=== PATIENT | female | born 1965 | race Hispanic/Latino ===

== ENCOUNTER 2019-03-26 14:14 | Emergency (ER) | payer BC ==
[~2019-03-26 14:14] MED LIST: HYDR-4068 PO; METF-446 PO; VALS1TAB81 PO
[2019-03-26 14:40] LABS: BASOPHILS % (AUTO) 0.6 % (0.0-5.0); EOSINOPHILS % (AUTO) 0.9 % (0.0-8.0); HEMATOCRIT 45.7 % (36-48); LYMPHOCYTES % (AUTO) 34.8 % (21.0-51.0); MEAN CORPUSCULAR HEMOGLOBIN 28.4 pg (27.0-33.0); MEAN CORPUSCULAR HGB CONC 33.1 g/dL (32.0-36.0); MEAN CORPUSCULAR VOLUME 85.6 fL (79-99); MONOCYTES % (AUTO) 7.4 % (3.0-13.0); NEUTROPHILS % (AUTO) 56.3 % (40.0-77.0); NUCLEATED RED BLOOD CELLS 0.1 % (0.0-0.19); PLATELET COUNT (AUTO) 233 K/uL (130-400); RED BLOOD CELL COUNT(AUTO) 5.34 MIL/uL (4.00-5.50); RED CELL DISTRIBUTION WIDTH 13.3 % (11.0-15.5); WHITE BLOOD COUNT (AUTO) 10.5 K/uL (4.8-10.8)
[2019-03-26] MEDS ORDERED: NITROGLYCERIN 1GM/1 INCH PACKET TD ONE (14:45)
[2019-03-26] MEDS ORDERED: ASPIRIN 325 MG TABLET ONE (14:45)
[2019-03-26 14:56] LABS: CREATININE 0.6 mg/dL (0.5-1.5); POTASSIUM 3.5 mmol/L (3.5-5.1)
[2019-03-26] MEDS ORDERED: LABETALOL 20 MG/4 ML DISP.SYRIN IV ONE (14:58)
[2019-03-26 15:01] LABS: ALBUMIN 3.6 g/dL (3.5-5.0); BILIRUBIN,TOTAL 0.3 mg/dL (0.2-1.0); TOTAL PROTEIN, SERUM 8.3 g/dL (6.0-8.3)
[2019-03-26 15:06] LABS: B-TYPE NATRIURETIC PEPTIDE 15 pg/mL (0-100)
[2019-03-26 15:30] LABS: INR 0.98 (0.85-1.15); PARTIAL THROMBOPLASTIN TIME 25.3 SEC (26.3-35.5); PROTHROMBIN TIME 10.1 SEC (9.6-11.6)
[2019-03-26] MEDS ORDERED: ONDANSETRON HCL 4 MG/2 ML VIAL ONE (16:41)
== END 2019-03-26 17:51 | disposition home or self-care (01) ==
LOC: EDH 14:14
DX: R07.89 Other chest pain (principal); R06.02 Shortness of breath; E11.9 Type 2 diabetes mellitus without complications; I10 Essential (primary) hypertension
CPT/HCPCS: 36415; 71045; 80053; 82550; 83880; 84484 ×2; 85025; 85610; 85730; 93005 ×2; 96374; 96375; 99285; J2405

== ENCOUNTER 2021-08-09 09:20 | Emergency (ER) | payer BC, OTHER ==
[~2021-08-09] VITALS: Ht 157.5 cm; Wt 75.7 kg
[2021-08-09 09:40] LABS: BASOPHILS % (AUTO) 0.7 % (0.0-5.0); EOSINOPHILS % (AUTO) 1.8 % (0.0-8.0); HEMATOCRIT 39.7 % (36-48); LYMPHOCYTES % (AUTO) 40.6 % (21.0-51.0); MEAN CORPUSCULAR HEMOGLOBIN 29.2 pg (27.0-33.0); MEAN CORPUSCULAR HGB CONC 33.5 g/dL (32.0-36.0); MEAN CORPUSCULAR VOLUME 87.1 fL (79-99); MONOCYTES % (AUTO) 7.2 % (3.0-13.0); NEUTROPHILS % (AUTO) 49.5 % (40.0-77.0); PLATELET COUNT (AUTO) 259 K/uL (130-400); RED BLOOD CELL COUNT(AUTO) 4.56 MIL/uL (4.00-5.50); RED CELL DISTRIBUTION WIDTH 13.3 % (11.0-15.5); WHITE BLOOD COUNT (AUTO) 9.4 K/uL (4.8-10.8)
[2021-08-09 09:51] LABS: CREATININE 0.7 mg/dL (0.5-1.5); POTASSIUM 3.4 mmol/L (3.5-5.1)
[2021-08-09 09:54] LABS: INR 1.02 (0.85-1.15); PARTIAL THROMBOPLASTIN TIME 24.2 SEC (26.3-35.5); PROTHROMBIN TIME 10.6 SEC (9.6-11.6)
[2021-08-09 09:55] LABS: ALBUMIN 3.4 g/dL (3.5-5.0); BILIRUBIN,TOTAL 0.1 mg/dL (0.2-1.0); TOTAL PROTEIN, SERUM 7.6 g/dL (6.0-8.3)
[2021-08-09 09:55] LABS: ALCOHOL, BLOOD < 3 mg/dL (0-10); AMMONIA 28 umol/L (11-32)
[2021-08-09 10:31] LABS: AMPHET/METH SCREEN,URINE POSITIVE (NEGATIVE); BARBITURATE SCREEN, URINE NEGATIVE (NEGATIVE); BENZODIAZEPINES SCREEN,URINE POSITIVE (NEGATIVE); CANNABINOID SCREEN,URINE NEGATIVE (NEGATIVE); COCAINE SCREEN,URINE NEGATIVE (NEGATIVE); OPIATE SCREEN,URINE NEGATIVE (NEGATIVE); PHENCYCLIDINE SCREEN,URINE NEGATIVE (NEGATIVE)
[2021-08-09] MEDS ORDERED: LACTATED RINGERS 1000ML 1,000 ML IV ONE (11:56)
[2021-08-09] MEDS ORDERED: POTASSIUM BICARB/CIT AC 25 MEQ TABLET.EFF PO ONE (12:00)
[2021-08-09] MEDS ORDERED: POTASSIUM BICARB/CIT AC 25 MEQ TABLET.EFF ONE (13:34)
[2021-08-09 15:37] VITALS: BP 140/76
== END 2021-08-09 15:44 | disposition home or self-care (01) ==
LOC: EDH 09:20
DX: F13.10 Sedative, hypnotic or anxiolytic abuse, uncomplicated (principal); F15.20 Other stimulant dependence, uncomplicated; E11.9 Type 2 diabetes mellitus without complications; Z79.84 Long term (current) use of oral hypoglycemic drugs; Z88.0 Allergy status to penicillin
CPT/HCPCS: 36415; 70450; 80053; 80305; 82140; 82948; 84484; 85025; 85610; 85730; 93005; 96360; 96361; 99285; J7120

== ENCOUNTER 2022-06-26 09:44 | Emergency (ER) | payer OTHER ==
[~2022-06-26] VITALS: Ht 162.6 cm; Wt 71.7 kg
[2022-06-26 09:45] VITALS: BP 161/83
[2022-06-26] MEDS ORDERED: BUPIVACAINE/PF 0.5% 30ML VIAL ONE (10:41)
[2022-06-26] MEDS ORDERED: BUPIVACAINE/PF 0.5% 10ML VIAL IJ ONE (11:00)
[2022-06-26] MEDS ORDERED: TETANUS/DIPHTHERIA TOXOID [ADULT] 0.5 ML VIAL IM ONE (11:00)
[2022-06-26] MEDS ORDERED: CEPH500C2 PO (13:24)
== END 2022-06-26 13:33 | disposition home or self-care (01) ==
LOC: EDH 09:44
DX: S60.551A Superficial foreign body of right hand, initial encounter (principal); E11.9 Type 2 diabetes mellitus without complications; I10 Essential (primary) hypertension; Z88.0 Allergy status to penicillin; Z90.710 Acquired absence of both cervix and uterus; Z98.890 Other specified postprocedural states; Z79.899 Other long term (current) drug therapy; Z79.84 Long term (current) use of oral hypoglycemic drugs; W01.0XXA Fall on same level from slipping, tripping and stumbling without subsequent striking against object, initial encounter; Y93.01 Activity, walking, marching and hiking; Y92.89 Other specified places as the place of occurrence of the external cause; Y99.8 Other external cause status
CPT/HCPCS: 99284; 90714; 73130; 73110; 90471; 29125; J3490 ×2

== ENCOUNTER 2025-02-13 11:19 | Emergency (ER) | payer OTHER ==
[~2025-02-13] VITALS: Ht 162.6 cm; Wt 86.2 kg
[~2025-02-13 11:19] MED LIST changes: +CEPH500C2 PO
--- NOTE | 2025-02-13 11:25 | ERN ---
ED Note History of Present Illness Stated Complaint: DOG BITE LT THUMB Chief Complaint: Animal Bite Time Seen by MD: 11:20 Dictation: PATIENT IS A 60-YEAR-OLD FEMALE STATES WAS IN HER YD LAST NIGHT WHEN A DOG CAME UP THAT SHE SEEN IN THE NEIGHBORHOOD IN HIS SHE WAS TRYING TO BED IT WHEN HE BIT HER IN THE LEFT HAND AND THUMB AREA. THERE IS A PUNCTURE WOUND TO THE LEFT THUMB. SHE DID NOT NOTIFY ANIMAL CONTROL OR LAW ENFORCEMENT, SHE HAS A DIABETIC. IN ADDITION STATES HER LAST TETANUS SHOT IS UNKNOWN. PUNCTURE WOUND SEEN THROUGH NAIL OF LEFT THUMB Allergies: Coded Allergies: Penicillins (Unverified Allergy, Unknown, SWELLING, 02/16/14) Home Meds Active Scripts Cephalexin (Cephalexin) 500 Mg Capsule, 500 MG PO TID for 5 Days, #15 CAP Prov:EL VICKERS MD 06/26/22 Reported Medications Valsartan/Hydrochlorothiazide (Valsartan-Hctz 320-25 mg Tab) 1 Each Tablet, 1 EACH PO AM, TAB 02/19/14 Hydrocodone/Acetaminophen (Hydrocodon-Acetaminophn 10-325) 1 Each Tablet, 1 EACH PO QID PRN for PAIN, TAB 02/16/14 Metformin HCl (Metformin HCl) 1,000 Mg Tablet, 1000 MG PO BID, TAB 02/16/14 Past Medical History Past Medical History: Diabetes-Type II, Hypertension Surgical History: Hysterectomy, Other Surgical History Other: POLYP COLON Social History: Negative RN Note Reviewed/Agreed w/PFSH: Yes Review of System Dictation CONSTITUTIONAL: NEGATIVE EXCEPT FOR HPI HEAD/FACE: NEGATIVE EXCEPT FOR HPI EENT: NEGATIVE EXCEPT FOR HPI RESPIRATORY: NEGATIVE EXCEPT FOR HPI GASTROINTESTINAL/ABDOMINAL: NEGATIVE EXCEPT FOR HPI GENITOURINARY: NEGATIVE EXCEPT FOR HPI MUSCULOSKELETAL: NEGATIVE EXCEPT FOR HPI INTEGUMENTARY: NEGATIVE EXCEPT FOR HPI PUNCTURE WOUND LEFT THUMB NEUROLOGICAL/PSYCH: NEGATIVE EXCEPT FOR HPI HEMATOLOGIC/LYMPHATIC: NEGATIVE EXCEPT FOR HPI ALL SYSTEMS NEGATIVE, EXCEPT NOTED ABOVE. 13 POINT REVIEW OF SYSTEMS ASSESSED AND ALL NEGATIVE EXCEPT FOR ABOVE. Initial Vital Sign VS Vital Signs Date Time Temp Pulse Resp B/P (MAP) Pulse Ox O2 Delivery O2 Flow Rate FiO2 02/13/25 11:20 97.9 77 20 159/92 99 0 02/13/25 11:27 Room Air* 21 Physical Exam Dictation VITAL SIGNS REVIEWED GENERAL APPEARANCE: ALERT, ORIENTED X 3, MODERATE ACUTE DISTRESS, WELL DEVELOPED, NOURISHED. HEAD AND FACE: NON-TRAUMATIC. EYES: PERRL, PINK CONJUNCTIVAS, EYELID NO TRAUMA, ANTERIOR CHAMBER WITH ARCUS SENILIS. EARS: PINNAS INTACT AND NO SIGNS OF TRAUMA OR ERYTHEMA EAR CANALS CLEAR AND NO DISCHARGE TM NO ERYTHEMA NOSE: NO DISCHARGE, NO BLEEDING. OROPHARYNX: MOUTH NORMAL, TONGUE PINK, PHARYNX CLEAR,NO ERYTHEMA, TONSILS NO EXUDATES, NO ABSCESSES NOTED, MUCOUS MEMBRANE MOIST NECK: SUPPLE, NON-TENDER, NO THYROMEGALY, NO MASSES, NO JVD, NO BRUITS BREAST:DEFERRED CHEST:NO TENDERNESS, NO CREPITUS, NO PARADOXICAL MOVEMENT, NO RETRACTIONS LUNGS:CLEAR, WELL-VENTILATED, SYMMETRIC, NO RALES, NO WHEEZING, NO RHONCHI, NO STRIDOR, GOOD BREATH SOUNDS BILATERALLY HEART: REGULAR RATE, REGULAR RHYTHM, NO MURMUR, NO GALLOPS VASCULAR: NO PERIPHERAL EDEMA, ABDOMEN: SOFT, POSITIVE BOWEL SOUNDS, NONDISTENDED, NO GUARDING, NONTENDER, NO REBOUND, NO MASSES NO HEPATOMEGALY, NO SPLENOMEGALY, NO AGUILAR'S SIGN, NO HERNIAS. RECTAL: DEFERRED GENITAL: DEFERRED NEUROLOGICAL: NORMAL SPEECH, MOTOR FUNCTION INTACT, SENSORY FUNCTION INTACT MUSCULOSKELETAL: DECREASED RANGE OF MOTION LEFT THUMB SECONDARY TO PAIN. NAIL ADHERING TO THE CUTICLE SKIN: COLOR PINK, PUNCTURE WOUND THROUGH LEFT THUMB NAIL. LYMPHATIC: DEFERRED Results (Laboratory/Radiology) Laboratory/Radiology DISTAL PHALANX FRACTURE LEFT THUMB Labs Reviewed?: Yes ED Course ED Course Orders Procedure Category Date Status Time Ibuprofen 800 Mg Tab PHA 02/13/25 Complete (Motrin) 11:30 Tetanus,Diphtheria PHA 02/13/25 Complete Tox [Adult] (Diphther 11:30 Clindamycin 150mg Cap PHA 02/13/25 Complete (Cleocin 150mg Cap 11:30 Neomy PHA 02/13/25 Complete Sulf/Bacitra/Polymyxin 11:30 Hand 3+Vws Lt RAD 02/13/25 Taken 11:22 *Nursing CPOE 02/13/25 Transmitted Communication: 11:22 Finger Splint NE 02/13/25 In Process 11:52 *Nursing CPOE 02/13/25 Verified Communication: 11:53 Current Medications Medications (Trade) Dose Ordered Sig/Conrad Route PRN Reason Start Time Stop Time Status Last Admin Dose Admin Clindamycin HCl (Cleocin 150mg Cap) 600 mg ONCE ONCE PO 02/13/25 11:30 02/13/25 11:31 DC Ibuprofen (moTRIN) 800 mg ONCE ONCE PO 02/13/25 11:30 02/13/25 11:31 DC Neomycin/ Polymyxin/ Bacitracin (Triple Antibiotic Ointment) 1 appl ONCE ONCE TP 02/13/25 11:30 02/13/25 11:31 DC Tetanus/ Diphtheria Toxoids Adsorbed (DiphthERIA-teTANUS TOXOID [ADULT]/ DECAVAC) 0.5 ml ONCE ONCE IM 02/13/25 11:30 02/13/25 11:31 DC Vital Signs Date Time Temp Pulse Resp B/P (MAP) Pulse Ox O2 Delivery O2 Flow Rate FiO2 02/13/25 11:27 97.9 77 20 159/92 99 Room Air* 0 21 02/13/25 11:20 97.9 77 20 159/92 99 0 1150/SPOKE TO PATIENT AT LENGTH REGARDING THE FINDINGS OF HER X-RAY AND THE FRACTURE. SHE IS AWARE WE WILL BE SPLINTING HER SHE WAS STARTED ON CLINDAMYCIN 600 MG P.O. NOW TETANUS SHOT WAS UPDATED. SHE WILL BE REFERRED TO DR. PAM GORDILLO ORTHOPEDIC SURGEON AND SHE WILL NEED TO CALL FOR AN APPOINTMENT. ADDITIONALLY WE WILL FOLLOW UP TO MAKE SURE DOG HIS REPORTED TO POLICE DEPARTMENT WHERE SHE LIVES Medical Decision Making MDM MEDICAL DECISION-MAKING BASED ON X-RAY OF LEFT THUMB, TETANUS UPDATE, CLINDAMYCIN LOADING. DUE TO PATIENT HAS ALLERGIES TO AUGMENTIN AND PENICILLIN PATIENT HAS A DISTAL PHALANX FRACTURE WE WILL SPLINT THIS. SHE WILL BE DISCHARGED WITH A SPLINT AND CLINDAMYCIN AND PAIN MANAGEMENT REPORT WE WILL BE MADE TO THE LOCAL POLICE DEPARTMENT IN [place] WHERE SHE LIVES WE WILL DISCHARGED HOME WITH CLINDAMYCIN PAIN MANAGEMENT INSTRUCTIONS TO FOLLOW UP DUE TO THE FRACTURE. DX & DISP Disposition: Discharge Departure Impression: Primary Impression: Fracture of distal phalanx of finger, open Additional Impression: Dog bite Condition: Stable Scripts Ibuprofen (Ibuprofen 800 mg Tab) 800 Mg Tab 800 MG PO Q8H PRN for fever or pain, #30 TAB 0 Refills Prov: JUDITH MCCRAY 02/13/25 Clindamycin HCl (Clindamycin HCl) 300 Mg Capsule 1 CAP PO QID for 10 Days, #40 CAP 0 Refills Prov: JUDITH MCCRAYP 02/13/25 Additional Instructions: FOLLOW-UP WITH PRIMARY CARE PROVIDER IN 1 TO 2 DAYS. TAKE MEDICATIONS DIRECTED HERE IN THE EMERGENCY ROOM. OKAY TO CONTINUE HOME MEDICATIONS UNLESS OTHERWISE DISCUSSED DURING YOUR VISIT IN THE EMERGENCY ROOM TODAY. RETURN TO YOUR NEAREST EMERGENCY ROOM IF SYMPTOMS WORSEN OR IF THERE IS NO IMPROVEMENT. CALL 911 IF YOU NEED IMMEDIATE ASSISTANCE. TAKE TYLENOL OR MOTRIN [id number] NEEDED AND IF NO CONTRAINDICATIONS ARE PRESENT. INCREASE ORAL HYDRATION. A WOUND CULTURE OR URINE CULTURE WAS ORDERED HERE IN THE EMERGENCY ROOM DEPARTMENT PLEASE FOLLOW-UP WITH PRIMARY CARE PROVIDER AND ADVISE THEM TO GET REPEAT PORTS FROM OUR FACILITY. IF YOU HAD ANY GUCCI WRAP/SPLINTS THAT WERE APPLIED HERE, PLEASE DO NOT REMOVE THEM UNTIL YOU SEE YOUR PRIMARY CARE OR SPECIALTY. TAKE ANTIBIOTICS DIRECTED UNTIL GONE. COMPLETE THE POLICE REPORT FROM THE DOG BITE TO YOUR THUMB. DO NOT REMOVE DRESSING UNTIL SEEN BY YOUR PRIMARY CARE DOCTOR. Referrals: ALEC HANSEN (PCP) PAM GORDILLO MD Time of Disposition: 11:56 I have reviewed the case, and I agree with, Diagnosis and Plan JUDITH MCCRAY CHEMISTRY TECHNICIAN Feb 13, 2025 11:25
[2025-02-13 11:27] VITALS: BP 159/92; PULSE 77; RESP 20; TEMP 97.9; O2SAT 99
--- NOTE | 2025-02-13 11:48 | NUR ---
CALLED LONI CARCAMO AT AND SPOKE TO RAUL. WAS TOLD THAT PT NEEDS TO GO INTO THE POLICE STATION AND MAKE THE REPORT.
[2025-02-13] MEDS ORDERED: IBUP-2077 PO (11:56)
[2025-02-13] MEDS ORDERED: CLIN-141 PO (11:56)
[2025-02-13] MEDS: CLINDAMYCIN 150 MG CAP PO ONE (12:07)
[2025-02-13] MEDS: NEOMY SULF/BACITRA/POLYMYXIN B 1 EACH PACKET TP ONE (12:07)
--- NOTE | 2025-02-13 13:13 | HMCIMG ---
HAND 3+VWS LT REASON: PUNCTURE WOUND LEFT THUMB WITH DOG BITE TECHNIQUE: 3 views were obtained. FINDINGS: There is comminuted fracture of the left fifth distal phalanx which is nondisplaced. There is no joint effusion. The soft tissues appear unremarkable. There is no evidence of a radiopaque foreign body. The remaining osseous structures interspace appears to be intact. IMPRESSION: Comminuted nondisplaced fracture of the left fifth distal phalanx midshaft
== END 2025-02-13 12:32 | disposition home or self-care (01) ==
LOC: EDH 11:19
DX: S62.522B Displaced fracture of distal phalanx of left thumb, initial encounter for open fracture (principal); E11.9 Type 2 diabetes mellitus without complications; I10 Essential (primary) hypertension; Z88.0 Allergy status to penicillin; Z79.84 Long term (current) use of oral hypoglycemic drugs; Z90.710 Acquired absence of both cervix and uterus; Z86.0100 Personal history of colon polyps, unspecified; W54.0XXA Bitten by dog, initial encounter; Y93.89 Activity, other specified; Y92.89 Other specified places as the place of occurrence of the external cause; Y99.8 Other external cause status
CPT/HCPCS: 29130; 73130; 90471; 90714; 99284